=== PATIENT | male | born 1980 | race Caucasian/White ===

== ENCOUNTER → 2017-11-02 | Outpatient (CLI) | payer OTHER ==
--- NOTE | 2017-11-02 12:42 | CONS ---
CONSULTATION DATE OF SERVICE: 11/02/2017 A 37-year-old gentleman who has been evaluated in the Sleep Center for possible obstructive sleep apnea-hypopnea syndrome. 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 No problem with falling asleep. No TV in bedroom. Patient sleeps in different positions, mostly on the side. He snores very loudly according to his . He has witnessed episodes of stopped breathing. He wakes up from sleep 4 times with nocturia, choking, gasping for air, sweating, restless leg, grinding teeth. In the morning patient wakes up tired, has difficulties to pay attention, falling asleep during the day. He takes naps as much as possible. [place] Sleepiness scale is extremely high range 19. Positive history of problems with memory, concentration, irritability. No history of hypnagogic hallucinations, sleep paralysis or cataplexy. PAST MEDICAL HISTORY: Positive for hypertension, gout, rosacea, varicose vein problems with swelling of the legs. PAST SURGICAL HISTORY: Knee surgery for gout. Left foot, great toe removed. SOCIAL HISTORY: Negative for smoking or using alcohol. MEDICATIONS: Indomethacin, Motrin, metoprolol. FAMILY HISTORY: Hypertension, heart problems, sinus headache, snoring, restless legs, crib . REVIEW OF SYSTEMS: Multiple awakenings from sleep. Very significant excessive sleepiness. Swelling of the legs, pain in joints. PHYSICAL EXAM: gentleman without distress. BP 160/93, HR 96, RR 16, height 5, 11, weight 302, BMI 42.1. Neck 18-1/2 inches in circumference. Temperature 96.9. Oxygen saturation at room air 96%. OROPHARYNX: Extremely low position of soft palate. Restriction of nasal breathing bilaterally. Wide neck 18-1/2 inches in circumference. Redness of the cheeks. Swelling of ankles 1+. Some changes of varicose veins of the legs. ABDOMEN: Obese. Neck Supple, no JVD. Thyroid is not palpable. LUNGS Clear to percussion and to auscultation. Good air exchange. No wheezing or rhonchi. HEART S1, S2 regular. No murmurs, gallops, or rubs. 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 Cranial nerves 2 to 7 intact. There is no fasciculation or atrophy. noted. No focal deficits observed. IMPRESSION: 1. Loud snoring, witnessed episodes of stopped breathing during the sleep, extremely low position of soft palate, multiple awakenings from sleep, wide neck. Obstructive sleep apnea-hypopnea syndrome. 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 3. Very significant excessive daytime sleepiness, dictate necessity to include hypersomnia in differential diagnosis. [place] Sleepiness Scale is 19 including sleepiness while driving a car. 4. Obesity, body mass index 42.1. 5. Hypertension. 6. Gout. 7. Rosacea. 8. Varicose veins, problems of the legs. 9. Swelling of ankles. PLAN: 1. Polysomnography for evaluation of patient's breathing during sleep. 2. CPAP/BiPAP titration if sleep study confirms obstructive sleep apnea-hypopnea syndrome. 3. Preferable position during sleep on the side. 4. No driving if patient feels any sleepiness. Patient is aware of civil and criminal liability for unsafe driving. 5. I will see patient for follow up visit to explain results of testing and following plan. Thank you very much for referring this patient for consultation. Sincerely, Ramses Mcmahon MD, PhD, FAASM Diplomat of [employer] Board of Internal Medicine Rail Track Layer of [facility] [place] MAGDIEL / [place]: [phone] /
== END | disposition home or self-care (01) ==
LOC: SLEEP 11:21
PROVIDERS: ATTEND Internal Medicine
DX: G47.33 Obstructive sleep apnea (adult) (pediatric) (principal); I10 Essential (primary) hypertension; M10.9 Gout, unspecified; E66.9 Obesity, unspecified; L71.9 Rosacea, unspecified; M79.89 Other specified soft tissue disorders; I83.93 Asymptomatic varicose veins of bilateral lower extremities; Z68.41 Body mass index [BMI] 40.0-44.9, adult; Z98.890 Other specified postprocedural states; Z79.1 Long term (current) use of non-steroidal anti-inflammatories (NSAID); Z79.899 Other long term (current) drug therapy
CPT/HCPCS: 99211

== ENCOUNTER → 2017-11-13 | Outpatient (CLI) | payer OTHER ==
--- NOTE | 2017-11-16 13:02 | SLS ---
SLEEP STUDY PROCEDURE: Polysomnogram. DATE OF SERVICE: 11/13/2017 The sleep evaluation of the patient consisted of one night of clinical polysomnography, a nocturnal respiratory battery, left and right leg anterior tibialis surface electromyography. The standard montage for clinical polysomnography included the electroencephalogram, the electrooculogram, the mentalis surface electromyography and Lead II cardiography. The respiratory battery consisted of measurements of nasal/buccal air flow, thoracic and/or abdominal effort and intercostal surface electromyography. Nocturnal oxyhemoglobin saturations were obtained by finger oximetry. RESULTS: During diagnostic sleep study sleep efficiency was in acceptable range 88.5%. Latency to sleep onset was very short 1 minute, latency to first REM prolonged to 214 minutes. Sleep architecture showed increasing stage N1 to 25.5%, very short delta sleep 0.5% and REM sleep extremely short 3.4%. Respiratory channel showed 153 obstructive apneas, 38 mixed apneas, 25 central apneas, 345 hypopneas with total apnea-hypopnea index 105.2 with oxygen desaturation to 77.6%. Totally for sleep study oxygen level was below normal for 23.8 minutes. Heart rate in the range between 63 and 108. EMG did not show significant periodic limb movements. IMPRESSION: 1. Extremely severe obstructive sleep apnea-hypopnea syndrome. 2. No significant periodic limb movements have been documented. 3. Please see other impressions from consultation. PLAN: 1. Titration with positive air pressure for correction of respiratory abnormalities during sleep. 2. Losing weight. 3. Sleep hygiene with regular time in bed for at least 8 hours. 4. No driving if feeling sleepiness. Thank you very much for allowing me to participate in the management of your patient. Sincerely, Ramses Mcmahon MD, PhD, FAASM Diplomat of [employer] Board of [employer] Medicine Sleep Medicine Board by [employer] Specialities Icelandic Board of Internal Medicine Director Of [employer] of [facility] [place]. MMODL / IJN: [id number] /
== END | disposition home or self-care (01) ==
LOC: SLEEP 08:00
PROVIDERS: ATTEND Internal Medicine
DX: G47.33 Obstructive sleep apnea (adult) (pediatric) (principal); Z99.89 Dependence on other enabling machines and devices
CPT/HCPCS: 95810

== ENCOUNTER → 2017-11-15 | Outpatient (CLI) | payer OTHER ==
--- NOTE | 2017-11-16 13:02 | SLS ---
SLEEP STUDY PROCEDURE: CPAP titration. DATE OF SERVICE: 11/15/2017. CLINICAL: Titration with positive air pressure has been done for correction of respiratory abnormalities during sleep. DESCRIPTION OF PROCEDURE: The standard montage for clinical polysomnography included the electroencephalogram, the electrocardiogram, the mentalis surface electromyography and Lead II cardiography. The respiratory battery consisted of measurements of nasal /buccal air flow, pressure transducer measurements from the nose, thoracic and /or abdominal effort and intercostal surface electromyography. Video monitoring has been done to check for any parasomnia events. Nocturnal oxyhemoglobin saturations were obtained by finger oximetry. Step-barker titration with positive airway pressure was utilized to control respiratory events. RESULTS: During titration, sleep efficiency was in normal range at 87.8%. Latency to sleep onset was in short range 4.5 minutes. Sleep architecture showed slight increasing stage N1 to 9.1%, delta sleep short 2.6%, but it is 5 times more than during diagnostic sleep study and REM sleep in normal range 25.8% comparing with extremely short during the diagnostic sleep study. Heart rate in the range between 61 and 100. EMG showed 52.2 periodic limb movements per hour with 0.2 microarousals per hour. CPAP titration done up to 15 cm of water. Then patient was tried on BiPAP at 15/8 cm of water. The best results was reached on CPAP at 13 cm of water. At that pressure, apnea-hypopnea index was 0 with oxygen level above 92%. With high pressure, patient developed a few central apneas. IMPRESSION: 1. Extremely severe obstructive sleep apnea-hypopnea syndrome, apnea-hypopnea index 105.2 with oxygen desaturation to 77.6%, most on control with CPAP at 13 cm of water. 2. Severe periodic limb movements during titration, but no periodic limb movement during diagnostic night. 3. Hypertension. 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 5. Obesity, body mass index 42.1. 6. Hypertension. 7. Gout. 8. Rosacea. 9. Swelling of ankle. 10.Varicose veins. . PLAN: 1. The patient will have treatment with positive air pressure equipment and should use it every night for the whole night. 2. Losing weight. 3. Sleep hygiene with regular time in bed for at least 8 hours. 4. No driving if feeling any sleepiness. Patient is aware about civil and criminal liability for unsafe driving. 5. I will see the patient for follow up visit to explain the results of the test, recommendations, check compliance with treatment and make any necessary adjustment related to mask fitting, pressure and humidification. Thank you very much for allowing me to participate in the management of your patient. Sincerely, Ramses Mcmahon MD, PhD, FAASM Diplomat of [employer] Specialties [employer] Board of Internal Medicine Associate Professor Of Music of [facility] [place] MMODL / [place]: [phone] /
== END | disposition home or self-care (01) ==
LOC: SLEEP 08:38
PROVIDERS: ATTEND Internal Medicine
DX: G47.33 Obstructive sleep apnea (adult) (pediatric) (principal); G47.61 Periodic limb movement disorder; I10 Essential (primary) hypertension; E66.9 Obesity, unspecified; M10.9 Gout, unspecified; L71.9 Rosacea, unspecified; M25.473 Effusion, unspecified ankle; I83.90 Asymptomatic varicose veins of unspecified lower extremity; Z68.41 Body mass index [BMI] 40.0-44.9, adult; Z99.89 Dependence on other enabling machines and devices
CPT/HCPCS: 95811

== ENCOUNTER → 2018-01-25 | Outpatient (CLI) | payer OTHER ==
--- NOTE | 2018-01-25 11:21 | SFUN ---
SLEEP STUDY FOLLOW UP NOTE DATE OF SERVICE: [birth year]/26/1980 A 37-year-old gentleman had been followed in sleep center for treatment of extremely severe obstructive sleep apnea-hypopnea syndrome. Recently patient underwent a polysomnogram and following CPAP titration. I discussed results of sleep studies with the patient. The sleep study showed extremely severe sleep apnea. Respiration was improved during titration. Today, the patient came for follow-up visit, first time after he received his CPAP unit. He was able to use CPAP equipment every night without significant problems. He mentioned that sometimes there is a discrepancy between amount of hours of usage of machine and reading from the machine. Otherwise, he feels significantly better while using CPAP. 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 I checked patient's CPAP unit. CPAP pressure is 13 cm of water. Usage is 23 out of 30 nights more than 4 hours. Average usage 5.9 hours. Leak is 37 L/minute. Apnea- hypopnea index only 0.9, which is totally normal. [place] Sleepiness Scale today 7. MEDICATIONS: Motrin and metoprolol. PHYSICAL EXAM: During physical exam, a gentleman without distress. VITAL SIGNS: BP 160/82, HR 78, RR 16, weight 301, temp 97.5, oxygen saturation on room air 95%. HEENT: PERRLA, EOMI. Oropharynx, Low position of soft palate. NECK: Supple, no JVD. Thyroid is not palpable. LUNGS: Clear to percussion and to auscultation. Good air exchange. No wheezing or rhonchi. HEART: S1, S2 regular. No murmurs, gallops, or rubs. ABDOMEN: Obese. EXTREMITIES: No clubbing or cyanosis. 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 Cranial nerves 2 to 7 intact. There is no fasciculation or atrophy. noted. No focal deficits observed. IMPRESSION: 1. Extremely severe obstructive sleep apnea-hypopnea syndrome; apnea-hypopnea index 105.2 with oxygen desaturation to 77.6% on full control with CPAP at 13 cm of water. Patient demonstrated good compliance with treatment benefitting from treatment. 2. Obesity. 3. Hypertension. 4. No problems with leg movements at night, although no periodic limb movements during diagnostic night and received periodic limb movements during titration. 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 6. Gout. 7. . 8. History of swelling of ankles secondary to varicose veins of the legs. PLAN: 1. Patient will continue to use CPAP equipment every night for the whole night. 2. Losing weight. 3. Sleep hygiene with regular time in bed for at least 8 hours. 4. No driving if feeling sleepiness. 5. Follow-up visit in 10 months or earlier if patient has any problems. Thank you very much for allowing me to participate in management of your patient. Sincerely, Ramses Mcmahon MD, PhD, FAASM Diplomat of [employer] Board of Medical Specialties Vietnamese Board of Internal Medicine Tours Captain of [facility] [place] MMODL / IJN: [id number] /
== END | disposition home or self-care (01) ==
LOC: SLEEP 09:55
PROVIDERS: ATTEND Internal Medicine
DX: G47.33 Obstructive sleep apnea (adult) (pediatric) (principal); E66.9 Obesity, unspecified; I10 Essential (primary) hypertension; M10.9 Gout, unspecified; Z87.39 Personal history of other diseases of the musculoskeletal system and connective tissue; Z79.1 Long term (current) use of non-steroidal anti-inflammatories (NSAID); Z79.899 Other long term (current) drug therapy; Z99.89 Dependence on other enabling machines and devices

== ENCOUNTER → 2019-05-23 | Outpatient (CLI) | payer OTHER ==
--- NOTE | 2019-05-23 20:29 | PN ---
PROGRESS NOTE DATE OF SERVICE: 05/23/2019 39-year-old gentleman has been followed in Sleep Center for treatment of obstructive sleep apnea-hypopnea syndrome. Patient successfully continued to use his CPAP equipment every night for the whole night. No snoring with the machine. [place] Sleepiness Scale today is 6 which is normal. I checked patient's CPAP unit, CPAP pressure of 13 cm of water. Leak is only 6 L/minute, which is great. Apnea-hypopnea index only 0.7, which is absolutely perfect. The usage is every night and 25/30 nights for more than 4 hours with average usage 5.2 hours per night. MEDICATIONS: Metoprolol, Motrin. PHYSICAL EXAM: Patient in no distress. BP on the right arm 156/99, on the left, 161/92, HR 92, RR 16, height 5 feet, 11 inches, weight 314 pounds which is 13 pounds more than 1 year ago. Body mass index 43.7, temperature 97.7, oxygen saturation at room air 95%. HEENT: Oropharynx: Low position of soft palate, Mallampati 4. Neck Supple, no JVD. Thyroid is not palpable. LUNGS Clear to percussion and to auscultation. Good air exchange. No wheezing or rhonchi. HEART S1, S2 regular. No murmurs, gallops, or rubs. ABDOMEN Soft and nontender. Bowel sounds are present. No organomegaly appreciated. EXTREMITIES: extremities 1+ bilateral ankle edema. 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 Cranial nerves 2 to 7 intact. There is no fasciculation or atrophy. noted. No focal deficits observed. IMPRESSION: 1. Extremely severe obstructive sleep apnea-hypopnea syndrome with apnea-hypopnea index 105.2, and oxygen desaturation to 77.6% on full control with CPAP at 13 cm of water. Patient demonstrated great compliance with treatment benefitting from treatment. 2. Hypertension. 3. Obesity. 4. History of gout. 5. The patient has changed his work schedule to the daytime. 6. Swelling of ankles secondary to varicose veins. PLAN: 1. Patient will continue to use CPAP equipment every night for the whole night. 2. Losing weight. 3. Sleep hygiene with regular time in bed for at least 8 hours. 4. No driving if feeling sleepiness. 5. Prescription for all necessary CPAP supplies including mask, tube, filters. 6. Followup visit in 1 year or earlier if patient has any problems. Thank you very much for allowing me to participate in the management of your patient. Sincerely, Ramses Mcmahon MD, PhD, FAASM Diplomat of [employer] Board of Medical Specialties [employer] Board of Internal Medicine Batch Plant Supervisor of [facility] [place] MMODL / [place]: [phone] /
== END ==
LOC: SLEEP 16:20
PROVIDERS: ATTEND Internal Medicine
DX: G47.33 Obstructive sleep apnea (adult) (pediatric) (principal); I10 Essential (primary) hypertension; E66.9 Obesity, unspecified; I83.90 Asymptomatic varicose veins of unspecified lower extremity; M25.473 Effusion, unspecified ankle; Z99.89 Dependence on other enabling machines and devices; Z87.39 Personal history of other diseases of the musculoskeletal system and connective tissue; Z68.41 Body mass index [BMI] 40.0-44.9, adult; Z79.1 Long term (current) use of non-steroidal anti-inflammatories (NSAID); Z79.899 Other long term (current) drug therapy

== ENCOUNTER → 2023-04-12 | Outpatient (CLI) | payer BC ==
--- NOTE | 2023-04-12 14:57 | P.SLEEP ---
History of Present Illness DATE: 04/12/2023 CONSULTATION/NEW PATIENT EVALUATION HISTORY OF PRESENT ILLNESS/SLEEP-WAKE EVALUATION: 43 year old gentleman had been evaluated in the sleep center for obstructive sleep apnea hypopnea syndrome. Last time I so patient in April 2019 for treatment of obstructive sleep apnea hypopnea syndrome. Patient continued to use his CPAP equipment. I checked CPAP unit. CPAP pressure is 13 cm of water, usage is 100% of nights, average 6.6 hours per night. Leak is 25 L/m which is borderline. Apnea- hypopnea index is 0.7 which is normal. SLEEP SCHEDULE: Usually sleep schedule from 9 PM to 5 AM on weekdays and from 11 PM to 8 AM on weekend. FALLING ASLEEP: No problems with falling asleep. DURING SLEEP: No snoring or episodes of stop breathing during the sleep while patient is using his CPAP equipment. No awakenings from sleep. No history of hypnogogical hallucinations, sleep paralysis, or cataplexy. DURING THE DAY/WAKE STATE: During the day patient feels sleepiness. [place] sleepiness scale is 17. Patient doesn't take naps. PAST MEDICAL HISTORY: Hypertension, gout. PAST SURGICAL HISTORY: Surgical treatment for varicose veins. MEDICATIONS: Carvedilol 12.5 mg twice a day, lisinopril 40 mg once a day, allopurinol 100 mg once a day. SOCIAL HISTORY: Positive for smoking in the past for about 1 year, alcohol consumption occasional. FAMILY HISTORY: Heart problems, stroke, cancer. REVIEW OF SYSTEMS: Leg movements during the night. No fevers. No double vision. No recent chest pain. No shortness of breath. No abdominal pain. No bleeding episodes. No blood in urine. No seizure episodes. PHYSICAL EXAMINATION: GENERAL: A pleasant patient without any distress. VITAL SIGNS: BP 129/82 , HR 86 , RR 18 , weight 336.8 pounds, height 6 foot 0 inches, body mass index 45.5 . HEENT: PERRLA, EOMI. Evaluation of oropharynx showed tongue protrudes midline, low position of soft palate Mallampati 4 NECK: Supple. No JVD. Thyroid is not palpable. 20 inches in circumference. LUNGS: Clear to percussion and to auscultation. Good air exchange. No wheezing or rhonchi. HEART: S1, S2 regular. No murmurs, gallops or rubs. ABDOMEN: Soft and nontender. Bowel sounds are present. No organomegaly appreciated. Obese EXTREMITIES: No clubbing or cyanosis. FIXER BOARDING ROOM: Awake, alert, and oriented x3. Cranial nerves 2 to 7 intact. There is no fasciculation or atrophy noted. No focal deficits observed. ASSESSMENT: 1. Obstructive sleep apnea-hypopnea syndrome, patient demonstrated 100% comp liance with treatment, normal respiration on CPAP. 2. Obesity, BMI 45.5. 3. Hypertension. 4. Gout. 5 status post varicose veins of the legs surgery. PLAN: 1. Patient will continue to use CPAP equipment every night for the whole night 2. prescription for new CPAP supplies 3. Preferable position during sleep on the side. 4. No driving if patient feels any sleepiness. Patient is aware of civil and criminal liability for unsafe driving. 5. Sleep hygiene with regular sleep time for at least 7.5-8 hours. 6. Watching and losing weight. 7. Follow-up visit in 6 months. Thank you very much for referring this patient for consultation. Sincerely, Ramses Mcmahon MD, PhD, FAASM. Diplomat of [employer] Board of Sleep Medicine, Sleep Medicine Board by [employer] Board [employer] Specialities [employer] Board of Internal Medicine Crusher And Blender Operator of [facility] [place] [facility] - Sleep Note Sleep Note: Temperature: Pulse Rate: Respiratory Rate: Blood Pressure: SpO2: Height: Weight: BMI: Neck Circumference:
== END ==
LOC: 3 N SLEEP 13:07
PROVIDERS: ATTEND Internal Medicine
DX: G47.33 Obstructive sleep apnea (adult) (pediatric) (principal); E66.9 Obesity, unspecified; Z68.42 Body mass index [BMI] 45.0-49.9, adult; I10 Essential (primary) hypertension; M10.9 Gout, unspecified; Z98.890 Other specified postprocedural states; Z99.89 Dependence on other enabling machines and devices
CPT/HCPCS: 99202